=== PATIENT | male | born 1990 | race Caucasian/White ===

== ENCOUNTER 2017-06-15 14:46 | Emergency (ER) | payer MEDICAID ==
[2017-06-15] MEDS ORDERED: PPD test dose* 5 TU/0.1 ML TEST (*USE PPD ORDER SET*) INTRADERM ONE (17:39)
--- NOTE | 2017-06-15 18:57 | UC ---
Maru Mckeon Julia, scribed for Fernando Roy MD on 06/15/17 at 1738 . Back Pain HPI - HPI Summary HPI Summary: This patient is a 27 year old M presenting [place] [facility] [place] by a nurse from his housing facility. with a chief complaint of lower back pain since 2016 after playing football. He states he was recently admitted to hospital for psychiatric symptoms, where he received an MRI due to lower back pain. He states the MRI revealed a bulging disc and spinal stenosis. Patient reports R posterior leg and R knee pain. Patient denies incontinence. The patient rates the pain 7/10 in severity. He states a history of frequent constipation, but denies current constipation. Pt is a new patient in near facility and is requesting a PPD and treatment for his chronic constipation. - History of Current Complaint Chief Complaint: UCBackPain Stated Complaint: BACK PAIN Time Seen by Provider: 06/15/17 17:20 Hx Obtained From: Patient Onset/Duration: Lasting Weeks, Still Present Timing: Constant Pain Intensity: 7 Pain Scale Used: 0-10 Numeric Back Pain: Is Discrete @ - low back, Radiates To - R posterior leg and knee Associated Signs And Symptoms: Positive: Negative Related History: Previous Back Injury - bulging disc - Allergies/Home Medications Allergies/Adverse Reactions: Allergies Allergy/AdvReac Type Severity Reaction Status Date / Time No Known Allergies Allergy Verified 06/15/17 16:41 Home Medications: Home Medications Bisacodyl [Dulcolax] 10 mg RI DAILY 06/15/17 [History Confirmed 06/15/17] Divalproex ER TAB(*) [Depakote ER TAB(*)] 250 mg PO BID 06/15/17 [History Confirmed 06/15/17] Divalproex Sodium [Depakote ER] 500 mg PO DAILY 06/15/17 [History Confirmed ] Docusate Sodium [Colace] 100 mg PO DAILY WITH MEAL 06/15/17 [History Confirmed 06/15/17] Fluoxetine HCl [Prozac] 20 mg PO DAILY 06/15/17 [History Confirmed 06/15/17] Omeprazole CAP* [Prilosec CAP* 20 MG] 20 mg PO BID 06/15/17 [History Confirmed 06/15/17] Senna TAB* [Senokot TAB*] 1 tab PO DAILY 06/15/17 [History Confirmed 06/15/17] PMH/Surg Hx/FS Hx/Imm Hx - Additional Past Medical History Additional PMH: bulging disc GI/ History: Other Other GI/ History: constipation - Surgical History Surgical History: Yes Surgery Procedure, Year, and Place: right arm surgery. devaited septum. appendix - Family History Known Family History: Negative: Cardiac Disease, Diabetes Family History: Pt denies any family medical history. - Social History Alcohol Use: None Substance Use Type: None Smoking Status (MU): Heavy Every Day Tobacco Smoker Type: Cigarettes Review of Systems Gastrointestinal: Negative Genitourinary: Negative Musculoskeletal: Myalgia - low back radiating to R posterior leg and knee All Other Systems Reviewed And Are Negative: Yes Physical Exam Triage Information Reviewed: Yes Vital Signs: Initial Vital Signs Temp 98.2 F 06/15/17 16:36 Pulse 73 06/15/17 16:36 Resp 16 06/15/17 16:36 BP 142/94 06/15/17 16:36 Pulse Ox 100 06/15/17 16:36 Vital Signs Reviewed: Yes - Additional Comments General: well-appearing, no pain distress Skin: warm, color reflects adequate perfusion, dry Head: normal Eyes: EOMI, NII ENT: normal Neck: supple, nontender Respiratory: CTA, breath sounds present Cardiovascular: RRR Abdomen: soft, nontender Bowel: present Musculoskeletal: strength/ROM intact, strength 5/5, mild tenderness to palpation of low back, R Para spinal muscles, R sciatic distribution, and R buttock, pain to R leg with R hip flexion Neurological: normal, sensory/motor intact, A&O x3, no sensation deficits, normal patella reflex, Psychological: affect/mood appropriate Back Pain Course/Dx - Course Course Of Treatment: BP noted and advised to follow up with PCP - Differential Dx/Diagnosis Provider Diagnoses: LOW BACK PAIN WITH LUMBAR RADICULOPATHY Discharge - Discharge Plan Condition: Stable Disposition: HOME Prescriptions: Bisacodyl EC TAB* [Dulcolax EC TAB*] 10 mg PO DAILY PRN #30 tab.ec PRN Reason: Constipation Docusate Sodium [Colace] 100 mg PO BID #60 capsule Senna TAB* [Senokot TAB*] 1 tab PO BID PRN #60 tab PRN Reason: Constipation Patient Education Materials: Low Back Strain (ED), Lumbar Radiculopathy (ED) Referrals: [facility] [Outside] Additional Instructions: Your blood pressure was elevated during todays visit; please follow up with your primary care provider within a week for further evaluation. FOLLOW UP WITH YOUR DOCTOR. GET YOUR PPD RECHECKED IN 48-72 HOURS. GET RECHECKED FOR ANY WORSENING OF YOUR CONDITION; WEAKNESS, NUMBNESS, DIFFICULTY CONTROLLING BOWEL OR BLADDER OR QUESTIONS OR CONCERNS. The documentation as recorded by the Maru roman Julia accurately reflects the service I personally performed and the decisions made by me, Fernando Roy MD.
== END 2017-06-15 18:28 | disposition home or self-care (01) ==
LOC: UCEAST 14:46
DX: M54.16 Radiculopathy, lumbar region (principal); K59.00 Constipation, unspecified; M51.27 Other intervertebral disc displacement, lumbosacral region; F17.210 Nicotine dependence, cigarettes, uncomplicated
CPT/HCPCS: 99202; G0463

== ENCOUNTER 2017-06-18 11:10 | Emergency (ER) | payer MEDICAID ==
[2017-06-18 11:39] VITALS: BP 136/84
--- NOTE | 2017-06-18 12:16 | UC ---
Back Pain HPI - HPI Summary HPI Summary: PT HERE ACCOMPANIED BY STAFF MEMBER FROM [facility]. IS C/O LOW BACK PAIN WORSENING SINCE MARCH 2017. PT WAS PLAYING TOUCH FOOTBALL AND TWEAKED HIS BACK. IS C/O INTERMITTENT TINGLING IN LEGS. DENIES ANY LOSS OF BOWEL/BLADDER CONTROL. NO SADDLE ANESTHESIA. WAS SEEN HERE 3 DAYS AGO AND ADVISED TO TAKE 600MG IBUPROFEN. PT REPORTS THIS IS NOT HELPING. HE REPORTS HAVING HAD AN MRI DONE 5 DAYS AGO AT AN OUTSIDE HOSPITAL. - History of Current Complaint Chief Complaint: UCBackPain Stated Complaint: BACK PAIN Time Seen by Provider: 06/18/17 11:46 Hx Obtained From: Patient Onset/Duration: Sudden Onset, Lasting Weeks, Still Present Timing: Constant Severity Initially: Moderate Severity Currently: Moderate Pain Intensity: 8 Pain Scale Used: 0-10 Numeric Back Pain: Is Discrete @ - LOW BACK Character: Sharp, Aching Aggravating Factor(s): Movement, Bending Alleviating Factor(s): Rest Associated Signs And Symptoms: Positive: Tingling. Negative: Swelling, Redness , Bruising, Weakness, Bladder Incontinence, Bowel Incontinence, Pain with Weight Bearing Related History: Previous Back Injury - Allergies/Home Medications Allergies/Adverse Reactions: Allergies Allergy/AdvReac Type Severity Reaction Status Date / Time No Known Allergies Allergy Verified 06/15/17 16:41 PMH/Surg Hx/FS Hx/Imm Hx GI/ History: Gastroesophageal Reflux - Surgical History Surgical History: Yes Surgery Procedure, Year, and Place: right arm surgery. devaited septum. appendix - Family History Known Family History: Negative: Cardiac Disease, Hypertension, Diabetes Family History: Pt denies any family medical history. - Social History Alcohol Use: None Substance Use Type: None Smoking Status (MU): Heavy Every Day Tobacco Smoker Type: Cigarettes Review of Systems Constitutional: Negative Skin: Negative Respiratory: Negative Cardiovascular: Negative Gastrointestinal: Negative Musculoskeletal: Arthralgia, Decreased ROM, Myalgia Neurological: Paresthesia All Other Systems Reviewed And Are Negative: Yes Physical Exam Triage Information Reviewed: Yes Appearance: Well-Appearing, No Pain Distress, Well-Nourished Vital Signs: Initial Vital Signs Temp 98.7 F 06/18/17 11:33 Pulse 79 06/18/17 11:33 Resp 16 06/18/17 11:33 BP 136/84 06/18/17 11:33 Pulse Ox 99 06/18/17 11:33 Vital Signs Reviewed: Yes Eyes: Positive: Conjunctiva Clear ENT: Positive: Hearing grossly normal Neck: Positive: Supple Respiratory: Positive: No respiratory distress, No accessory muscle use Cardiovascular: Positive: Pulses Normal Abdomen Description: Positive: Soft Musculoskeletal: Positive: No Edema, ROM Limited @ - BACK, Other: - TTP LUMBAR SPINE AND PARASPINAL MUSCLES RIGHT > LEFT Neurological: Positive: Alert Psychological: Positive: Age Appropriate Behavior Skin: Negative: rashes Back Pain Course/Dx - Differential Dx/Diagnosis Provider Diagnoses: CHRONIC LOW BACK PAIN Discharge - Discharge Plan Condition: Stable Disposition: HOME Prescriptions: Cyclobenzaprine TAB* [Flexeril TAB*] 10 mg PO BID PRN #30 tab PRN Reason: Pain predniSONE TAB* [Deltasone TAB*] 40 mg PO DAILY #10 tab Patient Education Materials: Chronic Back Pain (ED) Referrals: Stanley Cortés MD [Medical Doctor] - 1 Week Additional Instructions: CONTINUE IBUPROFEN NEEDED. WILL GIVE FLEXERIL AND PREDNISONE TO HELP WITH SYMPTOMS. REFERRAL FOR PHYSICAL THERAPY PROVIDED. RECOMMEND OBTAINING A HARD COPY OF THE MRI YOU HAD 5 DAYS AGO TO TAKE WITH YOU TO ANY UPCOMING FOLLOW-UP APPOINTMENTS. FOLLOW-UP WITH NEUROSURG OR SPINE CENTER TO DISCUSS FURTHER TREATMENT OPTIONS. BE SURE TO GO THROUGH SLOW RANGE OF MOTION AND STRETCHING EXERCISES DAILY YOU ARE ABLE TO PREVENT STIFFENING UP AND MAKING THE DISCOMFORT WORSE. GO TO THE ER WITHOUT FAIL IF YOU DEVELOP WORSENING NUMBNESS/TINGLING IN YOUR LEGS, NUMBNESS IN THE GENITAL REGION, LOSS OF BOWEL/BLADDER CONTROL, INTOLERABLE PAIN OR ANY OTHER CONCERNING SYMPTOMS. [facility] [address] [place] [address]
== END 2017-06-18 12:40 | disposition home or self-care (01) ==
LOC: UCEAST 11:10
DX: M54.5 Low back pain (principal); G89.29 Other chronic pain; F17.210 Nicotine dependence, cigarettes, uncomplicated
CPT/HCPCS: 99212; G0463

== ENCOUNTER 2017-06-25 16:45 | Emergency (ER) | payer MEDICAID ==
[2017-06-25 17:00] VITALS: BP 127/83
--- NOTE | 2017-06-25 17:40 | UC ---
Back Pain HPI - HPI Summary HPI Summary: 27 yo WM h/o right lumbar disc herniation dx'd by MRI last gi c/o continuous worsening right sided back pain x3 days associated with RLE radiculopathy, BUT this right sided back pain is associated with painful urination, without urinary frquency or urgency - History of Current Complaint Chief Complaint: UCBackPain Stated Complaint: BACK PAIN Time Seen by Provider: 06/25/17 17:21 Hx Obtained From: Patient Hx From Patient Unobtainable Due To: Other Onset/Duration: Lasting Days, Worse Since Timing: Lasting Days Severity Initially: Moderate Severity Currently: Moderate Pain Intensity: 9 - Allergies/Home Medications Allergies/Adverse Reactions: Allergies Allergy/AdvReac Type Severity Reaction Status Date / Time No Known Allergies Allergy Verified 06/25/17 17:00 PMH/Surg Hx/FS Hx/Imm Hx - Additional Past Medical History Additional PMH: [id number] LBP, right lumbar disc herniation - Surgical History Surgical History: Yes Surgery Procedure, Year, and Place: right arm surgery. devaited septum. appendix - Family History Known Family History: Negative: Cardiac Disease, Hypertension, Diabetes Family History: Pt denies any family medical history. - Social History Alcohol Use: None Substance Use Type: None Smoking Status (MU): Heavy Every Day Tobacco Smoker Type: Cigarettes Review of Systems Constitutional: Negative Skin: Negative Eyes: Negative ENT: Negative Respiratory: Negative Cardiovascular: Negative Gastrointestinal: Negative Genitourinary: Dysuria Motor: Negative Neurovascular: Negative Musculoskeletal: Decreased ROM - right LBP Neurological: Negative Psychological: Negative Is Patient Immunocompromised?: No All Other Systems Reviewed And Are Negative: Yes Physical Exam Triage Information Reviewed: Yes Vital Signs: Initial Vital Signs Temp 37.1 C 06/25/17 16:53 Pulse 98 06/25/17 16:53 Resp 18 06/25/17 16:53 BP 127/83 06/25/17 16:53 Pulse Ox 98 06/25/17 16:53 Eye Exam: Normal ENT Exam: Normal Dental Exam: Normal Neck exam: Normal Neck: Positive: 1 Respiratory Exam: Normal Cardiovascular Exam: Normal Abdominal Exam: Normal Musculoskeletal Exam: Normal Neurological Exam: Normal Psychological Exam: Normal Skin Exam: Normal Back Pain Course/Dx - Course Course Of Treatment: Chronic LBP flare-up vs upper/ascending UTI in a male-. UA neg for LE and nitrites but pH elevated at 7.2 and given new sx of dysuria in a male in setting of chronic lumabr back pain with radiculopathy will tx for upper UTI in a male - Differential Dx/Diagnosis Provider Diagnoses: LBP. Dysuria. UTI in male Discharge - Discharge Plan Condition: Stable Disposition: HOME Prescriptions: Ciprofloxacin TAB* [Cipro 500 MG TAB*] 500 mg PO BID 10 Days #20 tab tiZANidine TAB* [Zanaflex TAB*] 2 mg PO BEDTIME 5 Days #10 tab Patient Education Materials: Urinary Tract Infection in Men (ED), Lumbar Radiculopathy (ED) Referrals: No Primary Care Phys,NOPCP [Primary Care Provider] - Additional Instructions: as tolerated, follow up with orthopedics and pain management for chronic LBP
== END 2017-06-25 18:30 | disposition home or self-care (01) ==
LOC: UCEAST 16:45
DX: M54.5 Low back pain (principal); N39.0 Urinary tract infection, site not specified; R30.0 Dysuria; F17.210 Nicotine dependence, cigarettes, uncomplicated
CPT/HCPCS: 81003; 99212; G0463

== ENCOUNTER 2017-07-04 12:24 | Emergency (ER) | payer MEDICAID ==
[2017-07-04 13:35] LABS: ABS Basophils 0 10^3/ul (0-0.2); ABS Eosinophils 0 10^3/ul (0-0.6); ABS Lymphocytes 0.8 10^3/ul (1.0-4.8); ABS Monocytes 0.4 10^3/ul (0-0.8); ABS Neutrophils 5.3 10^3/ul (1.5-7.7); ABS Nucleated RBC 0 10^3/ul; Eosinophil % 0.3 % (0-6); Hematocrit 42 % (42-52); Hemoglobin 14.4 g/dl (14.0-18.0); Lymphocyte % 12.6 % (25-47); Mean Corpuscular HGB Conc 34 g/dl (31-36); Mean Corpuscular Hemoglobin 31 pg (27-31); Mean Corpuscular Volume 90 fL (80-94); Mean Platelet Volume 8 um3 (7.4-10.4); Nucleated Red Blood Cells % 0.1; Platelet Count 160 10^3/ul (150-450); Red Blood Count 4.62 10^6/ul (4.0-5.4); Red Cell Distribution Width 13 % (10.5-15); Urine Appearance Clear; Urine Blood Negative (Negative); Urine Color Straw; Urine Ketones Negative (Negative); Urine Protein Negative (Negative); Urine Specific Gravity 1.003 (1.010-1.030); Urine Urobilinogen Negative (Negative); White Blood Count 6.6 10^3/ul (3.5-10.8)
[2017-07-04 13:49] LABS: EGFR Non-African American 107.3 (>60)
--- NOTE | 2017-07-04 14:06 | ED ---
Psychiatric Complaint - HPI Summary HPI Summary: 27 male presents to ED, brought in by police, with complaints of suicidal ideation. [facility] insurance claim representative with patient. States he hates where he lives ([facility]) as he feels he is treated like a baby and has been unable to go see his recently sick grandmother. 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 Patient states he ran away from [facility] and wanted to find a bridge to jump off of, went to police station instead because he knew they would be looking for him. Denies any pain or discomfort. Does have psych history, with previous attempt at overdose, one month ago. No other complaints. No PMHx. No alcohol or drug use. No hallucinations, hearing voices or homicidal thoughts. Has had increased stress. - History Of Current Complaint Chief Complaint: EDMentalHealth Time Seen by Provider: 07/04/17 12:35 Hx Obtained From: Patient Onset/Duration: Gradual Onset, Lasting Days, Still Present Timing: Constant Severity Initially: Mild Severity Currently: Moderate Character: Depressed Aggravating Factor(s): Recent Stress Alleviating Factor(s): Nothing Associated Signs And Symptoms: Positive: Negative Related History: Positive For: Prior Psychiatric Issues Has Suicidal: Reports: Thoughts, With A Plan, Has Prior Attempt(s) Has Homicidal: Denies: Thoughts, With A Plan Recent Stressor(s): grandmother sick, doesn't like current living situation - Allergies/Home Medications Allergies/Adverse Reactions: Allergies Allergy/AdvReac Type Severity Reaction Status Date / Time No Known Allergies Allergy Verified 06/25/17 17:00 PMH/Surg Hx/FS Hx/Imm Hx Endocrine/Hematology History: Denies: Hx Diabetes, Hx Thyroid Disease Cardiovascular History: Denies: Hx Hypertension Respiratory History: Denies: Hx Asthma, Hx Chronic Obstructive Pulmonary Disease (COPD) GI History: Denies: Hx Ulcer - Surgical History Surgery Procedure, Year, and Place: right arm surgery. devaited septum. appendix - Immunization History Immunizations Up to Date: Yes Infectious Disease History: No Infectious Disease History: Denies: Hx Hepatitis, Hx Human Immunodeficiency Virus (HIV), Traveled Outside the [place] in Last 30 Days - Family History Known Family History: Negative: Cardiac Disease, Hypertension, Diabetes Family History: Pt denies any family medical history. - Social History Alcohol Use: None Substance Use Type: Reports: None Smoking Status (MU): Heavy Every Day Tobacco Smoker Type: Cigarettes Review of Systems Constitutional: Negative Cardiovascular: Negative Respiratory: Negative Positive: Depressed, Other - SI All Other Systems Reviewed And Are Negative: Yes Physical Exam Triage Information Reviewed: Yes Vital Signs On Initial Exam: Initial Vitals Temp Pulse Resp BP Pulse Ox 98.8 F 123 20 150/102 99 07/04/17 12:30 07/04/17 12:30 07/04/17 12:30 07/04/17 12:30 07/04/17 12:30 elevated HR and BP improved once calmed, patient anxious Vital Signs Reviewed: Yes Appearance: Positive: Well-Appearing - cooperative and pleasant, No Pain Distress, Well-Nourished Skin: Positive: Warm, Skin Color Reflects Adequate Perfusion, Dry. Negative: Cold, Cyanosis @, Pale, Erythema @ Head/Face: Positive: Normal Head/Face Inspection Eyes: Positive: Normal, EOMI, NII, Conjunctiva Clear ENT: Positive: Normal ENT inspection, Hearing grossly normal, Pharynx normal Neck: Positive: Supple, Nontender Respiratory/Lung Sounds: Positive: Clear to Auscultation, Breath Sounds Present. Negative: Rales, Rhonchi, Wheezes Cardiovascular: Positive: Normal, RRR, Pulses are Symmetrical in both Upper and Lower Extremities. Negative: Murmur, Rub Abdomen Description: Positive: Nontender, Soft Bowel Sounds: Positive: Present Musculoskeletal: Positive: Normal, Strength/ROM Intact Neurological: Positive: Normal, Sensory/Motor Intact, Alert, Oriented to Person Place, Time Psychiatric: Positive: Affect/Mood Appropriate - flat, Anxious, Depressed - Moreno Coma Scale Best Eye Response: 4 - Spontaneous Best Motor Response: 6 - Obeys Commands Best Verbal Response: 5 - Oriented Coma Scale Total: 15 Diagnostics - Vital Signs Vital Signs Temp Pulse Resp BP Pulse Ox 07/04/17 12:30 98.8 F 123 20 150/102 99 - Laboratory Lab Results: Lab Results 07/04/17 07/04/17 07/04/17 Range/Units 13:15 13:15 13:15 WBC 6.6 (3.5-10.8) 10^3/ul RBC 4.62 (4.0-5.4) 10^6/ul Hgb 14.4 (14.0-18.0) g/dl Hct 42 (42-52) % MCV 90 (80-94) fL MCH 31 (27-31) pg MCHC 34 (31-36) g/dl RDW 13 (10.5-15) % Plt Count 160 (150-450) 10^3/ul MPV 8 (7.4-10.4) um3 Neut % (Auto) 80.6 (38-83) % Lymph % (Auto) 12.6 L (25-47) % [place] % (Auto) 6.2 (0-7) % Eos % (Auto) 0.3 (0-6) % Baso % (Auto) 0.3 (0-2) % Absolute Neuts (auto) 5.3 (1.5-7.7) 10^3/ul Absolute Lymphs (auto) 0.8 L (1.0-4.8) 10^3/ul Absolute Monos (auto) 0.4 (0-0.8) 10^3/ul Absolute Eos (auto) 0 (0-0.6) 10^3/ul Absolute Basos (auto) 0 (0-0.2) 10^3/ul Absolute Nucleated RBC 0 10^3/ul Nucleated RBC % 0.1 Sodium 140 (133-145) mmol/L Potassium 3.7 (3.5-5.0) mmol/L Chloride 104 (101-111) mmol/L Carbon Dioxide 27 (22-32) mmol/L Anion Gap 9 (2-11) mmol/L BUN 8 (6-24) mg/dL Creatinine 0.85 (0.67-1.17) mg/dL Est GFR ( Amer) 138.0 (>60) Est GFR (Non-Af Amer) 107.3 (>60) BUN/Creatinine Ratio 9.4 (8-20) Glucose 98 (70-100) mg/dL Calcium 9.9 (8.6-10.3) mg/dL Total Bilirubin 0.40 (0.2-1.0) mg/dL AST 15 (13-39) U/L ALT 25 (7-52) U/L Alkaline Phosphatase 67 (34-104) U/L Total Protein 7.2 (6.4-8.9) g/dL Albumin 4.6 (3.2-5.2) g/dL Globulin 2.6 (2-4) g/dL Albumin/Globulin Ratio 1.8 (1-3) TSH Pending Urine Color Urine Appearance Urine pH (5-9) Ur Specific [place] (1.010-1.030) Urine Protein (Negative) Urine Ketones (Negative) Urine Blood (Negative) Urine Nitrate (Negative) Urine Bilirubin (Negative) Urine Urobilinogen (Negative) Ur Leukocyte Esterase (Negative) Urine Glucose (Negative) Salicylates Pending Urine Opiates Screen None detected (None Detect) Acetaminophen Pending Ur Barbiturates Screen None detected (None Detect) Ur Phencyclidine Scrn None detected (None Detect) Ur Amphetamines Screen None detected (None Detect) U Benzodiazepines Scrn None detected (None Detect) Urine Cocaine Screen None detected (None Detect) U Cannabinoids Screen None detected (None Detect) Serum Alcohol Pending 07/04/17 Range/Units 13:15 WBC (3.5-10.8) 10^3/ul RBC (4.0-5.4) 10^6/ul Hgb (14.0-18.0) g/dl Hct (42-52) % MCV (80-94) fL MCH (27-31) pg MCHC (31-36) g/dl RDW (10.5-15) % Plt Count (150-450) 10^3/ul MPV (7.4-10.4) um3 Neut % (Auto) (38-83) % Lymph % (Auto) (25-47) % [place] % (Auto) (0-7) % Eos % (Auto) (0-6) % Baso % (Auto) (0-2) % Absolute Neuts (auto) (1.5-7.7) 10^3/ul Absolute Lymphs (auto) (1.0-4.8) 10^3/ul Absolute Monos (auto) (0-0.8) 10^3/ul Absolute Eos (auto) (0-0.6) 10^3/ul Absolute Basos (auto) (0-0.2) 10^3/ul Absolute Nucleated RBC 10^3/ul Nucleated RBC % Sodium (133-145) mmol/L Potassium (3.5-5.0) mmol/L Chloride (101-111) mmol/L Carbon Dioxide (22-32) mmol/L Anion Gap (2-11) mmol/L BUN (6-24) mg/dL Creatinine (0.67-1.17) mg/dL Est GFR ( Amer) (>60) Est GFR (Non-Af Amer) (>60) BUN/Creatinine Ratio (8-20) Glucose (70-100) mg/dL Calcium (8.6-10.3) mg/dL Total Bilirubin (0.2-1.0) mg/dL AST (13-39) U/L ALT (7-52) U/L Alkaline Phosphatase (34-104) U/L Total Protein (6.4-8.9) g/dL Albumin (3.2-5.2) g/dL Globulin (2-4) g/dL Albumin/Globulin Ratio (1-3) TSH Urine Color Straw Urine Appearance Clear Urine pH 7.0 (5-9) Ur Specific [place] 1.003 L (1.010-1.030) Urine Protein Negative (Negative) Urine Ketones Negative (Negative) Urine Blood Negative (Negative) Urine Nitrate Negative (Negative) Urine Bilirubin Negative (Negative) Urine Urobilinogen Negative (Negative) Ur Leukocyte Esterase Negative (Negative) Urine Glucose Negative (Negative) Salicylates Urine Opiates Screen (None Detect) Acetaminophen Ur Barbiturates Screen (None Detect) Ur Phencyclidine Scrn (None Detect) Ur Amphetamines Screen (None Detect) U Benzodiazepines Scrn (None Detect) Urine Cocaine Screen (None Detect) U Cannabinoids Screen (None Detect) Serum Alcohol Result Diagrams: 07/04/17 13:15 07/04/17 13:15 Lab Statement: Any lab studies that have been ordered have been reviewed, and results considered in the medical decision making process. Course/Dx - Course Course Of Treatment: labs and urinalysis obtained and unremarkable. was cleared for MHE. no other concerns for medical etiology at this time. will have evaluation. patient was signed out to Demetrio ANDRES at shift change 2:30pm pending MHE and dispostion. - Differential Dx/Clinical Impression Differential Diagnosis/HQI/PQRI: Positive: Anxiety, Depression, Suicidal Ideation Provider Diagnosis: Depression, Suicidal thoughts, Mental health problem - Physician Notifications Discussed Care Of Patient With: Salome Anaya PA-C at shift change pending MHE/ dispo Patient Is Medically Stable For: Psych Evaluation Discharge - Discharge Plan Condition: Stable Disposition: OTHER Discharge Disposition Comment: signed out to Salome ANDRES at shift change pending MHE /dispo Referrals: No Primary Care Phys,NOPCP [Primary Care Provider] -
[2017-07-04 16:00] VITALS: BP 114/72
== END 2017-07-04 15:56 ==
LOC: ED 12:24
DX: F32.9 Major depressive disorder, single episode, unspecified (principal); R45.851 Suicidal ideations; F17.210 Nicotine dependence, cigarettes, uncomplicated
CPT/HCPCS: 36415; 80053; 80307; 80320; 80329; 81003; 84443; 85025; 99283; G0480

== ENCOUNTER 2017-07-10 12:57 | Emergency (ER) | payer MEDICAID ==
--- NOTE | 2017-07-10 14:38 | ED ---
Alie Mckeon Abhishek, scribed for Alexi Baker MD on 07/10/17 at 1331 . Back Pain - HPI Summary HPI Summary: This patient is a 27 year old M presenting to [facility] accompanied by female with a chief complaint of back pain since March 2017. Pt states hes had slipped disk. The pain began after playing football. The pain is described as worse since 07/10/17. The patient rates the pain 8/10 in severity. Symptoms aggravated by nothing. Symptoms alleviated by nothing. Medications reviewed and reported. Patient reports leg pain, numbness, tingling in leg spine and lower back. Allergies noted and reviewed. The pt is receiving respite care in [place]. 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 Onset/Duration: Started Weeks Ago - Since March (2016 Timing: Constant Back Pain Location: Is Discrete @ - Lower back Severity Initially: Severe Severity Currently: Severe Pain Intensity: 8 Pain Scale Used: 0-10 Numeric Aggravating Symptom(s): Nothing Alleviating Symptom(s): Nothing - Allergies/Home Medications Allergies/Adverse Reactions: Allergies Allergy/AdvReac Type Severity Reaction Status Date / Time No Known Allergies Allergy Verified 06/25/17 17:00 PMH/Surg Hx/FS Hx/Imm Hx Endocrine/Hematology History: Denies: Hx Diabetes, Hx Thyroid Disease Cardiovascular History: Denies: Hx Hypertension Respiratory History: Denies: Hx Asthma, Hx Chronic Obstructive Pulmonary Disease (COPD) GI History: Denies: Hx Ulcer Psychiatric History: Denies: Hx Eating Disorder, Hx of Violent Episodes Against Others - Surgical History Surgery Procedure, Year, and Place: right arm surgery. devaited septum. appendix Infectious Disease History: No Infectious Disease History: Denies: Hx Hepatitis, Hx Human Immunodeficiency Virus (HIV), Traveled Outside the [place] in Last 30 Days - Family History Known Family History: Negative: Cardiac Disease, Hypertension, Diabetes Family History: Pt denies any family medical history. - Social History Alcohol Use: None Substance Use Type: Reports: None Smoking Status (MU): Heavy Every Day Tobacco Smoker Type: Cigarettes Review of Systems Constitutional: Negative Eyes: Negative ENT: Negative Cardiovascular: Negative Respiratory: Negative Gastrointestinal: Negative Genitourinary: Negative Musculoskeletal: Other - Lower back pain; leg pain Skin: Negative Neurological: Other - tingling in the legs and feet Positive: Numbness - legs and feet Psychological: Normal All Other Systems Reviewed And Are Negative: Yes Physical Exam - Summary Physical Exam Summary: Appearance: Well-appearing, Well-nourished, Appropriate answer to questions Skin: Warm, Dry, No rash, Lymph nodes are absent Eyes: Normal, PERRL, EOMI, sclera anicteric ENT: Normal Neck: Supple, nontender Respiratory: Clear to auscultation Cardiovascular: S1, S2, no murmur, no rub, no gallop Abdomen: Soft, nontender, no organomegaly Bowel sounds: Present Musculoskeletal: Normal, Strength/ROM Intact, no edema, pulses symmetrical, Pain is the sciatic notch on the right side, Normal heel and toe. Neurological: Normal, A&Ox3, cranial nerves II-XII WNL, follows commands, gait not tested, sensation intact to pin and light touch, Sensations normal, Gait is normal, Stuttering speech, Reflex is symmetrical, Straight leg raising test is positive at about 30 degrees no weakness Psychiatric: affect normal, behavior appropriate, dressed appropriately, judgment intact Triage Information Reviewed: Yes Vital Signs On Initial Exam: Initial Vitals Temp Pulse Resp BP Pulse Ox 97.8 F 87 17 148/97 100 07/10/17 12:59 07/10/17 12:59 07/10/17 12:59 07/10/17 12:59 07/10/17 12:59 Vital Signs Reviewed: Yes Diagnostics - Vital Signs Vital Signs Temp Pulse Resp BP Pulse Ox 07/10/17 12:59 97.8 F 87 17 148/97 100 - Laboratory Lab Statement: Any lab studies that have been ordered have been reviewed, and results considered in the medical decision making process. Back Pain Course/Dx - Course Course Of Treatment: The pt is a 27 M presenting to the [facility] with a chief complaint of lower back pain since March (2016. Associated signs and symptoms include leg pain, numbness, tingling in leg spine and lower back. Allergies noted and reviewed. The pt is receiving respite care in [place]. The pt will be discharged home with a dx of lower back pain and possible herniated disk L4 L5 right side. - Diagnoses Provider Diagnoses: Lower back pain, Herniated nucleus pulposus, L4-5 right Discharge - Discharge Plan Condition: Stable Disposition: HOME Prescriptions: Gabapentin 300 mg PO BEDTIME #30 capsule Patient Education Materials: Sciatica (ED), Lumbar Radiculopathy (ED), Lower Back Exercises (ED) Referrals: No Primary Care Phys,NOPCP [Primary Care Provider] - The documentation as recorded by the Alie roman Abhishek accurately reflects the service I personally performed and the decisions made by me, Alexi Baker MD.
[2017-07-10 15:07] VITALS: BP 119/73
== END 2017-07-10 15:07 | disposition home or self-care (01) ==
LOC: ED 12:57
DX: M54.5 Low back pain (principal); M51.16 Intervertebral disc disorders with radiculopathy, lumbar region; Z79.899 Other long term (current) drug therapy
CPT/HCPCS: 99282

== ENCOUNTER 2017-07-16 15:57 | Emergency (ER) | payer MEDICAID ==
[2017-07-16 16:13] VITALS: BP 134/89
--- NOTE | 2017-07-16 16:55 | UC ---
Ear Complaint HPI - HPI Summary HPI Summary: c/o right earache for the past few days, states he has history of allergic rhinitis and used to be on nasal sprays and singulair in the past, is starting to recur with nasal congestion and maxillary sensitivity. History of smoking 10 cigarettes a day. Denies cough, fever, malaise or ear discharge. He also has history of bipolar disorder and ran out of his medications. He is a resident at [facility] and is accompanied by staff member, states he soon will have a PCP and a permanent residence. - History of Current Complaint Chief Complaint: UCEar Stated Complaint: MED REFILL Time Seen by Provider: 07/16/17 16:30 Pain Intensity: 0 - Allergies/Home Medications Allergies/Adverse Reactions: Allergies Allergy/AdvReac Type Severity Reaction Status Date / Time No Known Allergies Allergy Verified 07/16/17 16:18 PMH/Surg Hx/FS Hx/Imm Hx Previously Healthy: Yes GI/ History: Gastroesophageal Reflux Psychological History: Bipolar Disorder - Surgical History Surgical History: Yes Surgery Procedure, Year, and Place: right arm surgery. devaited septum. appendix - Family History Known Family History: Negative: Cardiac Disease, Hypertension, Diabetes Family History: Pt denies any family medical history. - Social History Alcohol Use: None Substance Use Type: None Smoking Status (MU): Heavy Every Day Tobacco Smoker Type: Cigarettes Review of Systems Constitutional: Negative ENT: Ear Ache, Nasal Discharge, Sinus Congestion, Sinus Pain/Tenderness All Other Systems Reviewed And Are Negative: Yes Physical Exam Triage Information Reviewed: Yes Vital Signs: Initial Vital Signs Temp 98.9 F 07/16/17 16:06 Pulse 84 07/16/17 16:06 Resp 18 07/16/17 16:06 BP 134/89 07/16/17 16:06 Pulse Ox 98 07/16/17 16:06 Vital Signs Reviewed: Yes Eye Exam: Normal Eyes: Positive: Conjunctiva Clear ENT: Positive: Pharynx normal, Nasal congestion, TMs normal, Uvula midline Neck: Positive: Supple, Nontender, No Lymphadenopathy Respiratory: Positive: Chest non-tender, Lungs clear, Normal breath sounds, No respiratory distress Cardiovascular: Positive: RRR, No Murmur, Pulses Normal, Brisk Capillary Refill Abdomen Description: Positive: Nontender, No Organomegaly, Soft Bowel Sounds: Positive: Present Ear Complaint Course/Dx - Course Course Of Treatment: Ear exam was normal with history of chronic allergic rhinitis, otalgia probably due to eustachian ear dysfunction and rhinosinus congestion. Restart flonase and saline nasal irrigation. Refilled medications, f /u PCP referral service - Differential Dx/Diagnosis Provider Diagnoses: Eustachian tube dysfunction. Chronic allergic Rhinitis. Tobacco use. History of bipolar disorder Discharge - Discharge Plan Condition: Stable Disposition: HOME Patient Education Materials: Allergic Rhinitis (ED), How to Stop Smoking (ED), Bipolar Disorder (ED) Referrals: No Primary Care Phys,NOPCP [Primary Care Provider] - [facility] [place] [facility] [place]]
== END 2017-07-16 17:15 | disposition home or self-care (01) ==
LOC: UCEAST 15:57
DX: H69.81 Other specified disorders of Eustachian tube, right ear (principal); J30.9 Allergic rhinitis, unspecified; F31.9 Bipolar disorder, unspecified; Z76.0 Encounter for issue of repeat prescription; K21.9 Gastro-esophageal reflux disease without esophagitis; F17.210 Nicotine dependence, cigarettes, uncomplicated
CPT/HCPCS: 99212; G0463

== ENCOUNTER 2017-07-22 20:31 | Emergency (ER) | payer MEDICAID ==
[2017-07-22 21:33] LABS: Urine Appearance Clear; Urine Blood Negative (Negative); Urine Color Yellow; Urine Ketones Negative (Negative); Urine Protein Negative (Negative); Urine Urobilinogen Negative (Negative)
[2017-07-22 22:38] LABS: ABS Basophils 0 10^3/ul (0-0.2); ABS Eosinophils 0 10^3/ul (0-0.6); ABS Lymphocytes 1.4 10^3/ul (1.0-4.8); ABS Monocytes 0.4 10^3/ul (0-0.8); ABS Neutrophils 3.2 10^3/ul (1.5-7.7); ABS Nucleated RBC 0 10^3/ul; Eosinophil % 0.7 % (0-6); Hematocrit 43 % (42-52); Hemoglobin 15.1 g/dl (14.0-18.0); Lymphocyte % 28.1 % (25-47); Mean Corpuscular HGB Conc 35 g/dl (31-36); Mean Corpuscular Hemoglobin 32 pg (27-31); Mean Corpuscular Volume 91 fL (80-94); Mean Platelet Volume 7.9 um3 (7.4-10.4); Nucleated Red Blood Cells % 0.1; Platelet Count 202 10^3/ul (150-450); Red Blood Count 4.78 10^6/ul (4.0-5.4); Red Cell Distribution Width 13 % (10.5-15); White Blood Count 5.1 10^3/ul (3.5-10.8)
--- NOTE | 2017-07-22 22:48 | ED ---
Ronald Mckeon Jennifer, scribed for Fernando Roy MD on 07/22/17 at 2057 . Psychiatric Complaint - HPI Summary HPI Summary: The patient is a 27 year old male who complains of suicidal ideation today. He states suicidal plans to strangle self with belt. The patient has a history of depression and reports he has been to the ED for mental health before. He denies drug and alcohol use. - History Of Current Complaint Chief Complaint: EDMentalHealth Time Seen by Provider: 07/22/17 20:42 Hx Obtained From: Patient Onset/Duration: Sudden Onset, Still Present Timing: Constant Severity Initially: Mild Severity Currently: Mild Character: Depressed Aggravating Factor(s): Nothing Alleviating Factor(s): Nothing Related History: Positive For: Prior Psychiatric Issues Has Suicidal: Reports: Thoughts, With A Plan Has Homicidal: Denies: Thoughts, With A Plan - Allergies/Home Medications Allergies/Adverse Reactions: Allergies Allergy/AdvReac Type Severity Reaction Status Date / Time No Known Allergies Allergy Verified 07/16/17 16:18 PMH/Surg Hx/FS Hx/Imm Hx Endocrine/Hematology History: Denies: Hx Diabetes, Hx Thyroid Disease Cardiovascular History: Denies: Hx Hypertension Respiratory History: Denies: Hx Asthma, Hx Chronic Obstructive Pulmonary Disease (COPD) GI History: Denies: Hx Ulcer Psychiatric History: Denies: Hx Eating Disorder, Hx of Violent Episodes Against Others - Surgical History Surgery Procedure, Year, and Place: right arm surgery. devaited septum. appendix Infectious Disease History: No Infectious Disease History: Denies: Hx Hepatitis, Hx Human Immunodeficiency Virus (HIV), Traveled Outside the [place] in Last 30 Days - Family History Known Family History: Negative: Cardiac Disease, Hypertension, Diabetes Family History: Pt denies any family medical history. - Social History Alcohol Use: None Substance Use Type: Reports: None Smoking Status (MU): Heavy Every Day Tobacco Smoker Type: Cigarettes Review of Systems Negative: Fever Positive: Depressed All Other Systems Reviewed And Are Negative: Yes Physical Exam - Summary Physical Exam Summary: General: well-appearing, no pain distress Skin: warm, color reflects adequate perfusion, dry Head: normal Eyes: EOMI, INI ENT: normal Neck: supple, nontender Respiratory: CTA, breath sounds present Cardiovascular: RRR Abdomen: soft, nontender Bowel: present Musculoskeletal: normal, strength/ROM intact Neurological: normal, sensory/motor intact, A&O x3 Psychological: affect/mood appropriate Triage Information Reviewed: Yes Vital Signs On Initial Exam: Initial Vitals Temp Pulse Resp BP Pulse Ox 98.6 F 107 16 177/100 99 07/22/17 20:34 07/22/17 20:34 07/22/17 20:34 07/22/17 20:34 07/22/17 20:34 Vital Signs Reviewed: Yes Diagnostics - Vital Signs Vital Signs Temp Pulse Resp BP Pulse Ox 07/22/17 20:34 98.6 F 107 16 177/100 99 - Laboratory Lab Results: Lab Results 07/22/17 07/22/17 07/22/17 Range/Units 21:00 21:00 22:20 WBC 5.1 (3.5-10.8) 10^3/ul RBC 4.78 (4.0-5.4) 10^6/ul Hgb 15.1 (14.0-18.0) g/dl Hct 43 (42-52) % MCV 91 (80-94) fL MCH 32 H (27-31) pg MCHC 35 (31-36) g/dl RDW 13 (10.5-15) % Plt Count 202 (150-450) 10^3/ul MPV 7.9 (7.4-10.4) um3 Neut % (Auto) 62.7 (38-83) % Lymph % (Auto) 28.1 (25-47) % [place] % (Auto) 7.9 H (0-7) % Eos % (Auto) 0.7 (0-6) % Baso % (Auto) 0.6 (0-2) % Absolute Neuts (auto) 3.2 (1.5-7.7) 10^3/ul Absolute Lymphs (auto) 1.4 (1.0-4.8) 10^3/ul Absolute Monos (auto) 0.4 (0-0.8) 10^3/ul Absolute Eos (auto) 0 (0-0.6) 10^3/ul Absolute Basos (auto) 0 (0-0.2) 10^3/ul Absolute Nucleated RBC 0 10^3/ul Nucleated RBC % 0.1 Urine Color Yellow Urine Appearance Clear Urine pH 7.0 (5-9) Ur Specific [place] 1.010 (1.010-1.030) Urine Protein Negative (Negative) Urine Ketones Negative (Negative) Urine Blood Negative (Negative) Urine Nitrate Negative (Negative) Urine Bilirubin Negative (Negative) Urine Urobilinogen Negative (Negative) Ur Leukocyte Esterase Negative (Negative) Urine Glucose Negative (Negative) Urine Opiates Screen None detected (None Detect) Ur Barbiturates Screen None detected (None Detect) Ur Phencyclidine Scrn None detected (None Detect) Ur Amphetamines Screen None detected (None Detect) U Benzodiazepines Scrn None detected (None Detect) Urine Cocaine Screen None detected (None Detect) U Cannabinoids Screen None detected (None Detect) Result Diagrams: 07/22/17 22:20 Lab Statement: Any lab studies that have been ordered have been reviewed, and results considered in the medical decision making process. Course/Dx - Course Course Of Treatment: Medications reviewed. BP noted and advised to follow up with PCP. FINAL DISPOSITION PENDING AT SHIFT CHANGE. SIGNED OUT TO DR MACIAS. - Differential Dx/Clinical Impression Provider Diagnosis: Elevated BP without diagnosis of hypertension, Mental health problem Discharge - Sign-Out/Discharge Documenting (check all that apply): Sign-Out Patient Signing out patient TO: Jesus Macias - pending mental health evaluation - Discharge Plan Condition: Stable Disposition: [facility]IC [facility]AC[facility] [place] Referrals: Lewis Rosas MD [Primary Care Provider] - Additional Instructions: Your blood pressure was elevated during todays visit; please follow up with your primary care provider within a week for further evaluation. Follow up with your primary care physician in three days. Return to the emergency department for any new or worsening symptoms. - Billing Disposition and Condition Condition: STABLE Disposition: [facility] [place] The documentation as recorded by the Ronald roman Jennifer accurately reflects the service I personally performed and the decisions made by me, Fernando Roy MD.
[2017-07-22 22:59] LABS: EGFR Non-African American 103.1 (>60)
[2017-07-23 06:08] VITALS: BP 117/75
--- NOTE | 2017-07-23 17:35 | ED ---
Issa Mckeon Stephanie, scribed for Jesus Macias MD on 07/22/17 at 2301 . Re-Evaluation - Re-Evaluation First Eval Change: Improved - Pt seen and evaluated by Psych. Plan for transport back to home with 1:1 monitoring. Course/Dx - Course Course Of Treatment: Medications reviewed. BP noted and advised to follow up with PCP. FINAL DISPOSITION PENDING AT SHIFT CHANGE. SIGNED OUT TO DR MACIAS. - Diagnoses Provider Diagnoses: Elevated BP without diagnosis of hypertension, Mental health problem, Mood disorder Discharge - Sign-Out/Discharge Documenting (check all that apply): Receiving Sign-Out Receiving patient FROM: Fernando Roy - Discharge Plan Condition: Stable Disposition: HOME Patient Education Materials: Mood Disorders (ED) Referrals: Lewis Rosas MD [Primary Care Provider] - Additional Instructions: Your blood pressure was elevated during todays visit; please follow up with your primary care provider within a week for further evaluation. Follow up with your primary care physician in three days. Return to the emergency department for any new or worsening symptoms. Per completion of a mental health evaluation, you are cleared for release and do not require inpatient psychiatric hospitalization at this time. Please go to nearest emergency room or call 911 if safety concerns arise or condition worsens. [facility]........[phone] Suicide Prevention and Crisis Services........................[phone] National Suicide Prevention Lifeline............................650-577-FBTT ( 9862) [facility].......................[phone] Alcoholics Anonymous...............................................[phone] [facility]..............[phone] [facility]..............................................[phone] - Billing Disposition and Condition Condition: STABLE Disposition: HOME The documentation as recorded by the Issa roman Stephanie accurately reflects the service I personally performed and the decisions made by , Jesus Macias MD.
== END 2017-07-23 06:26 | disposition home or self-care (01) ==
LOC: ED 20:31
DX: F39 Unspecified mood [affective] disorder (principal); R45.851 Suicidal ideations; F32.9 Major depressive disorder, single episode, unspecified; F17.210 Nicotine dependence, cigarettes, uncomplicated
CPT/HCPCS: 36415; 80053; 80307; 80320; 80329; 81003; 84443; 85025; 99284; G0480